=== PATIENT | female | born 1985 ===

== ENCOUNTER 2020-03-24 18:37 | Emergency (ER) | payer SELFPAY ==
[2020-03-24] VITALS (11 sets, daily range): BP systolic 107–126; BP diastolic 70–90
[~2020-03-24] VITALS: Ht 157.4 cm; Wt 57.0 kg
--- NOTE | 2020-03-24 18:57 | ED General ---
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) Exam Limitations: Language Barrier (PT SPEAKS LIMITED YORUBA) History of Present Illness Date Seen by Provider: Mar 24, 2020 Time Seen by Provider: 18:53 Initial Comments PT ARRIVES VIA POV FROM HOME STATES SHE HAS BEEN SICK SINCE Saturday03/20/20 C/O SUBJECTIVE FEVER, HEADACHE AND BODY ACHES SLIGHT SHORTNESS OF BREATH MILD SORE THROAT NO COUGH OR NASAL DRAINAGE OR CONGESTION NO GI SYMPTOMS NO VISION CHANGES C/O URINARY FREQUENCY, BUT NO PAIN ON URINATION HAS OCCASIONALLY TAKEN TYLENOL FOR HER SYMPTOMS PT DENIES ANY KNOWN SICK CONTACTS, BUT PT WORKS AT [employer], WHERE THERE HAVE BEEN A MULTITUDE OF POSITIVE COVID-19 / CORONAVIRUS CASES IN THE LAST WEEK PT HAS CONTINUED TO WORK ALL WEEK, DESPITE BEING SICK, WITH THE LAST DAY SHE WORKED WAS Saturday03/22/20 PT STATES SHE LIVES ALONE--HER CHILDREN AND OTHER FAMILY LIVE IN [facility] PCP: NONE Allergies and Home Medications Allergies Coded Allergies: No Known Drug Allergies (Unverified , 03/24/20) Patient Home Medication List Home Medication List Reviewed: Yes Review of Systems Review of Systems Constitutional: see HPI, fever, malaise EENTM: see HPI, throat pain; No ear pain, No nose congestion Respiratory: see HPI; No cough; short of breath; No wheezing Cardiovascular: no symptoms reported; No chest pain, No edema, No palpitations, No syncope Gastrointestinal: no symptoms reported; No abdominal pain, No nausea, No vomiting Genitourinary: see HPI; No dysuria; frequency : No LMP: February 26, 2020 Musculoskeletal: see HPI, back pain, other (BODY ACHES) Skin: no symptoms reported; No rash Psychiatric/Neurological: See HPI, Headache; Denies Numbness, Denies Paresthesia, Denies Seizure, Denies Tingling, Denies Weakness Hematologic/Lymphatic: No Symptoms Reported Immunological/Allergic: no symptoms reported Past [id number] Hx Past Med/Social Hx: Reviewed and Corrections made Patient Social History Alcohol Use: Rarely Uses Recreational Drug Use: No Smoking Status: Never a Smoker Recent Foreign Travel: No Past Medical History Surgeries: Yes ( X 2; BTL) Section, Tubal Ligation Respiratory: No Cardiac: No Neurological: No : No Reproductive Disorders: No Genitourinary: No Gastrointestinal: No Musculoskeletal: No Endocrine: No HEENT: No Cancer: No Psychosocial: No Integumentary: No Blood Disorders: No Physical Exam Vital Signs Vital Signs - First Documented 03/24/20 18:53 Temp 38.1 Pulse 105 Resp 22 B/P (MAP) 137/91 (106) Pulse Ox 99 Capillary Refill : Height, Weight, BMI Height: '" Weight: lbs. oz. kg; BMI Method: General Appearance: No Apparent Distress, WD/WN Eyes: Bilateral Eye Normal Inspection, Bilateral Eye PERRL, Bilateral Eye EOMI, Bilateral Eye Other (CONJUNCTIVA INFLAMED BILATERALLY) HEENT: PERRL/EOMI, TMs Normal, Normal ENT Inspection, Pharynx Normal, Moist Mucous Membranes Neck: Full Range of Motion, Normal Inspection, Non Tender, Supple; No Carotid Bruit, No JVD, No Lymphadenopathy (L), No Lymphadenopathy (R) Respiratory: Chest Non Tender, Normal Breath Sounds, No Accessory Muscle Use, No Respiratory Distress Cardiovascular: No Edema, No Gallop, No JVD, No Murmur, Normal Peripheral Pulses, Tachycardia (105) Gastrointestinal: Normal Bowel Sounds, No Organomegaly, No Pulsatile Mass, Non Tender, Soft Back: Normal Inspection, No CVA Tenderness, No Vertebral Tenderness Extremity: Normal Capillary Refill, Normal Inspection, Normal Range of Motion, Non Tender, No Calf Tenderness, No Pedal Edema Neurologic/Psychiatric: Alert, Oriented x3, No Motor/Sensory Deficits, Normal Mood/Affect, 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 Norm as Tested Skin: Normal Color, Warm/Dry; No Rash Focused Exam Lactate Level 03/24/20 19:05: Lactic Acid Level 0.89 Lactic Acid Level Laboratory Tests Test 03/24/20 19:05 Lactic Acid Level 0.89 MMOL/L (0.50-2.00) Progress/Results/Core Measures Suspected Sepsis SIRS Temperature: Pulse: Respiratory Rate: Laboratory Tests 03/24/20 19:05: White Blood Count 4.8 Blood Pressure / Mean: 03/24/20 19:05: Lactic Acid Level 0.89 Laboratory Tests 03/24/20 19:05: Creatinine 0.68, Platelet Count 216, Total Bilirubin 0.2 03/24/20 19:30: INR Comment 0.9 Results/Orders Lab Results Laboratory Tests Test 03/24/20 19:05 03/24/20 19:30 Range/Units White Blood Count 4.8 4.3-11.0 10^3/uL Red Blood Count 5.62 4.35-5.85 10^6/uL Hemoglobin 14.9 11.5-16.0 G/DL Hematocrit 44 35-52 % Mean Corpuscular Volume 79 L 80-99 FL Mean Corpuscular Hemoglobin 27 25-34 PG Mean Corpuscular Hemoglobin Concent 34 32-36 G/DL Red Cell Distribution Width 14.7 H 10.0-14.5 % Platelet Count 216 130-400 10^3/uL Mean Platelet Volume 10.0 7.4-10.4 FL Neutrophils (%) (Auto) 65 42-75 % Lymphocytes (%) (Auto) 27 12-44 % Monocytes (%) (Auto) 8 0-12 % Eosinophils (%) (Auto) 0 0-10 % Basophils (%) (Auto) 0 0-10 % Neutrophils # (Auto) 3.1 1.8-7.8 X 10^3 Lymphocytes # (Auto) 1.3 1.0-4.0 X 10^3 Monocytes # (Auto) 0.4 0.0-1.0 X 10^3 Eosinophils # (Auto) 0.0 0.0-0.3 10^3/uL Basophils # (Auto) 0.0 0.0-0.1 10^3/uL Erythrocyte Sedimentation Rate 4 0-20 MM/HR Sodium Level 135 135-145 MMOL/L Potassium Level 3.5 L 3.6-5.0 MMOL/L Chloride Level 106 98-107 MMOL/L Carbon Dioxide Level 15 L 21-32 MMOL/L Anion Gap 14 5-14 MMOL/L Blood Urea Nitrogen 5 L 7-18 MG/DL Creatinine 0.68 0.60-1.30 MG/DL Estimat Glomerular Filtration Rate > 60 BUN/Creatinine Ratio 7 Glucose Level 101 70-105 MG/DL Lactic Acid Level 0.89 0.50-2.00 MMOL/L Calcium Level 9.4 8.5-10.1 MG/DL Corrected Calcium 8.5-10.1 MG/DL Magnesium Level 2.0 1.6-2.4 MG/DL Total Bilirubin 0.2 0.1-1.0 MG/DL Aspartate Amino Transf (AST/SGOT) 40 H 5-34 U/L Alanine Aminotransferase (ALT/SGPT) 50 0-55 U/L Alkaline Phosphatase 67 40-136 U/L Lactate Dehydrogenase 242 H 125-220 U/L C-Reactive Protein High Sensitivity 1.72 H 0.00-0.50 MG/DL Total Protein 8.5 H 6.4-8.2 GM/DL Albumin 4.7 H 3.2-4.5 GM/DL Procalcitonin 0.03 <0.10 NG/ML Serum Test, Qualitative NEGATIVE NEGATIVE Monoscreen NEGATIVE NEGATIVE Prothrombin Time 12.5 12.2-14.7 SEC INR Comment 0.9 0.8-1.4 Activated Partial Thromboplast Time 28 24-35 SEC D-Dimer 0.48 0.00-0.49 UG/ML Urine Color YELLOW Urine Clarity CLEAR Urine pH 6.0 5-9 Urine Specific Amalia <=1.005 1.016-1.022 Urine Protein NEGATIVE NEGATIVE Urine Glucose (UA) NEGATIVE NEGATIVE Urine Ketones NEGATIVE NEGATIVE Urine Nitrite NEGATIVE NEGATIVE Urine Bilirubin NEGATIVE NEGATIVE Urine Urobilinogen 0.2 < = 1.0 MG/DL Urine Leukocyte Esterase NEGATIVE NEGATIVE Urine RBC (Auto) NEGATIVE NEGATIVE Urine RBC NONE /HPF Urine WBC 0-2 /HPF Urine Squamous Epithelial Cells 2-5 /HPF Urine Crystals PRESENT H /LPF Urine Amorphous Sediment FEW LEROY URATES H /LPF Urine Bacteria NEGATIVE /HPF Urine Casts NONE /LPF Urine Mucus NEGATIVE /LPF Urine Culture Indicated NO Group A Streptococcus Screen NEGATIVE NEGATIVE Micro Results Microbiology 03/24/20 Influenza Types A,B Antigen (HOWIE) - Final, Complete My Orders Orders - RICK LEMON DO Lactic Acid Analyzer (03/24/20 18:54) Magnesium (03/24/20 18:54) Monotest (03/24/20 18:54) Procalcitonin (Pct) (03/24/20 18:54) Protime With Inr (03/24/20 18:54) Partial Thromboplastin Time (03/24/20 18:54) Rapid Strep A Screen (03/24/20 18:54) Blood Culture (03/24/20 18:54) Influenza A And B Antigens (03/24/20 18:54) Adenovirus Detection By Pcr (03/24/20 18:54) Acetaminophen Tablet (Tylenol Tablet) (03/24/20 19:30) Hcg,Qualitative Serum (03/24/20 20:39) Azithromycin Tablet (Zithromax Tablet) (03/24/20 21:00) Medications Given in ED Current Medications Medications Dose Ordered Sig/Rasheed Route Start Time Stop Time Status Last Admin Dose Admin Acetaminophen 1,000 mg ONCE ONCE PO 03/24/20 19:30 03/24/20 19:31 DC 03/24/20 19:55 1,000 MG Vital Signs/I&O 03/24/20 03/24/20 03/24/20 03/24/20 18:53 19:00 19:15 19:30 Temp 38.1 Pulse 105 101 108 99 Resp 22 16 18 16 B/P (MAP) 137/91 (106) 126/79 (95) 121/74 (90) 113/78 (90) Pulse Ox 99 95 98 98 03/24/20 03/24/20 03/24/20 03/24/20 19:45 19:55 20:00 20:15 Temp 38.1 Pulse 102 100 91 Resp 14 19 27 B/P (MAP) 125/88 (100) 118/84 (95) 119/70 (86) Pulse Ox 95 100 96 03/24/20 20:34 Temp 37.9 Pulse 98 Resp 20 B/P (MAP) 123/90 (101) Pulse Ox 97 Capillary Refill : Progress Note : Progress Note PT SEEN IN COVID UNIT, COVID TESTING DONE AND PPE WORN AT ALL TIMES Diagnostic Imaging Comments CXR--NO ACUTE PROCESS, PER RADIOLOGIST REPORT AT 2027 Reviewed: Reviewed by Me Departure Impression Primary Impression: COVID P.U.I. Additional Impression: Fever Disposition: 01 HOME, SELF-CARE Condition: Stable Departure-Patient Inst. Referrals: NO,LOCAL PHYSICIAN (PCP/Family) Primary Care Physician Patient Instructions: Coronavirus Disease 2019 (COVID-19) (DC) Add. Discharge Instructions: TYLENOL 1 GRAM 4 TIMES A DAY FOR PAIN OR FEVER LOTS OF CLEAR LIQUIDS QUARANTINE FOR THE NEXT 2 WEEKS, OR UNTIL CLEARED BY HEALTH DEPARTMENT--YOU AND NO ONE ELSE LEAVES OR ENTERS YOUR HOME FOR THE NEXT 2 WEEKS RICK LEMON DO Mar 24, 2020 18:57
[2020-03-24] MEDS ORDERED: ACETAMINOPHEN 500 MG TAB (TYLENOL) PO ONE (19:30)
[2020-03-24 19:55] LABS: BASOPHILS % (AUTO) 0 % (0-10); EOSINOPHILS % (AUTO) 0 % (0-10); HEMATOCRIT 44 % (35-52); HEMOGLOBIN 14.9 G/DL (11.5-16.0); LYMPHOCYTES # (AUTO) 1.3 X 10^3 (1.0-4.0); LYMPHOCYTES % (AUTO) 27 % (12-44); MEAN CORPUSCULAR HEMOGLOBIN 27 PG (25-34); MEAN CORPUSCULAR HGB CONC 34 G/DL (32-36); MEAN CORPUSCULAR VOLUME 79 FL (80-99); MONOCYTES # (AUTO) 0.4 X 10^3 (0.0-1.0); MONOCYTES % (AUTO) 8 % (0-12); NEUTROPHILS # (AUTO) 3.1 X 10^3 (1.8-7.8); NEUTROPHILS % (AUTO) 65 % (42-75); PLATELET COUNT 216 10^3/uL (130-400); RED CELL DISTRIBUTION WIDTH 14.7 % (10.0-14.5); WHITE BLOOD COUNT 4.8 10^3/uL (4.3-11.0)
[2020-03-24 19:58] LABS: BILIRUBIN,URINE NEGATIVE (NEGATIVE); CLARITY,URINE CLEAR; COLOR,URINE YELLOW; GLUCOSE, URINE (UA) NEGATIVE (NEGATIVE); KETONES,URINE NEGATIVE (NEGATIVE); LEUKOCYTE ESTERASE ,URINE NEGATIVE (NEGATIVE); NITRITE,URINE NEGATIVE (NEGATIVE); PROTEIN,URINE NEGATIVE (NEGATIVE)
[2020-03-24 20:18] LABS: ALANINE AMINOTRANSFERASE 50 U/L (0-55); ALBUMIN 4.7 GM/DL (3.2-4.5); ALKALINE PHOSPHATASE 67 U/L (40-136); BILIRUBIN,TOTAL 0.2 MG/DL (0.1-1.0); BUN/CREATININE RATIO 7; CALCIUM 9.4 MG/DL (8.5-10.1); CARBON DIOXIDE 15 MMOL/L (21-32); CHLORIDE 106 MMOL/L (98-107); CREATININE SERUM 0.68 MG/DL (0.60-1.30); GFR ESTIMATED > 60; GLUCOSE 101 MG/DL (70-105); POTASSIUM 3.5 MMOL/L (3.6-5.0); SODIUM 135 MMOL/L (135-145); TOTAL PROTEIN 8.5 GM/DL (6.4-8.2)
--- NOTE | 2020-03-24 20:18 | Diagnostic Imaging Report ---
INDICATION: Short of breath, dyspnea Upright chest shows normal heart size and vascularity. The lungs are clear. There is no effusion or pneumothorax. There is no bony abnormality. IMPRESSION: No acute abnormality is seen. Dictated by: Dictated on workstation # [id number]
[2020-03-24 20:19] LABS: ERYTHROCYTE SEDIMENTATION RATE 4 MM/HR (0-20)
[2020-03-24 20:27] LABS: FIBRIN DEGRADATION PRODUCTS 0.48 UG/ML (0.00-0.49); INR 0.9 (0.8-1.4); PROTHROMBIN TIME PATIENT 12.5 SEC (12.2-14.7)
[2020-03-24 20:38] LABS: BACTERIA,URINE NEGATIVE /HPF; WBC,URINE 0-2 /HPF
[2020-03-24 20:39] LABS: AMORPHOUS SEDIMENT,UR FEW AMOR URATES /LPF
[2020-03-24] MEDS ORDERED: AZITHROMYCIN 250 MG TAB (ZITHROMAX) PO ONE (21:00)
[2020-03-24] MEDS ORDERED: IBUPROFEN TABLET 200 MG TAB PO ONE (21:11)
[2020-03-24] MEDS ORDERED: IBUPROFEN 800 MG (MOTRIN) TAB PO ONE (21:15)
--- OUTSIDE RECORDS SUMMARY | 2020-03-24 22:39 | XMS REPORT | Continuity of Care Document ---
Author Organization Unknown Address Unknown Phone Unavailable Allergies There is no data. Medications There is no data. Problems There is no data. Procedures There is no data. Results Test Result Range Complete blood count (CBC) with automate d white blood cell (WBC) differential - 03/24/20 19:05 Blood leukocytes automated count (number/volume) 4.8 10*3/uL 4.3-11.0 Blood erythrocytes automated count (number/volume) 5.62 10*6/uL 4.35-5.85 Venous blood hemoglobin measurement (mass/volume) 14.9 g/dL 11.5-16.0 Blood hematocrit (volume fraction) 44 % 35-52 Automated erythrocyte mean corpuscular volume 79 [ foz_us] 80-99 Automated erythrocyte mean corpuscular h emoglobin (mass per erythrocyte) 27 pg 25-34 Automated erythrocyte mean corpuscular h emoglobin concentration measurement (mass/volume) 34 g/dL 32-36 Automated erythrocyte distribution width ratio 14. 7 % 10.0- 14.5 Automated blood platelet count (count/volume) 216 10*3/uL 130-400 Automated blood platelet mean volume measurement 10.0 [foz_us] 7.4-10.4 Automated blood neutrophils/100 leukocytes 65 % 42-75 Automated blood lymphocytes/100 leukocytes 27 % 12-44 Blood monocytes/100 leukocytes 8 % 0-12 Automated blood eosinophils/100 leukocytes 0 % 0-10 Automated blood basophils/100 leukocytes 0 % 0-10 Blood neutrophils automated count (number/volume) 3.1 10*3 1.8-7.8 Blood lymphocytes automated count (number/volume) 1.3 10*3 1.0-4.0 Blood monocytes automated count (number/volume) 0. 4 10*3 0.0-1.0 Automated eosinophil count 0.0 10*3/uL 0 .0-0.3 Automated blood basophil count (count/volume) 0.0 10*3/uL 0.0-0.1 Serum heterophile antibody titer - 03/24 19:05 Serum heterophile antibody titer NEGATIVE NEGATIVE Blood lactic acid measurement (moles/vol ume) - 03/24/20 19:05 Blood lactic acid measurement (moles/volume) 0.89 mmol/L 0.50-2.00 Comprehensive metabolic panel - 03/24/20 19:05 Serum or plasma sodium measurement (moles/volume) 135 mmol/L 135-145 Serum or plasma potassium measurement (moles/volume) 3.5 mmol/L 3.6-5.0 Serum or plasma chloride measurement (moles/volume) 106 mmol/L 98-107 Carbon dioxide 15 mmol/L 21-32 Serum or plasma anion gap determination (moles/volume) 14 mmol/L 5-14 Serum or plasma urea nitrogen measurement (mass/volume ) 5 mg/dL 7-18 Serum or plasma creatinine measurement (mass/volume) 0.68 mg/dL 0.60-1.30 Serum or plasma urea nitrogen/creatinine mass ratio 7 NRG Serum or plasma creatinine measurement w ith calculation of estimated glomerular filtration rate > NRG Serum or plasma glucose measurement (mass/volume) 101 mg/dL 70-105 Serum or plasma calcium measurement (mass/volume) 9.4 mg/dL 8.5-10.1 Serum or plasma total bilirubin measurement (mass/volu me) 0.2 mg/dL 0.1-1.0 Serum or plasma alkaline phosphatase gi surement (enzymatic activity/volume) 67 U/L 40-136 Serum or plasma aspartate aminotransfera se measurement (enzymatic activity/volume) 40 U/L 5-34 Serum or plasma alanine aminotransferase measurement (enzymatic activity/volume) 50 U/L 0-55 Serum or plasma protein measurement (mass/volume) 8.5 g/dL 6.4-8.2 Serum or plasma albumin measurement (mass/volume) 4.7 g/dL 3.2-4.5 Magnesium - 03/24/20 19:05 Magnesium 2.0 mg/dL 1.6-2.4 Serum ragweed IgE antibody assay - 03/24 19:05 Serum ragweed IgE antibody assay 242 U/L 125-220 PROCALCITONIN (PCT) - 03/24/20 19:05 PROCALCITONIN (PCT) 0.03 ng/mL <0.10 Erythrocyte sedimentation rate by rob gren method - 03/24/20 19:05 Erythrocyte sedimentation rate by westergren method 4 mm 0- 20 Serum or plasma C reactive protein measu rement (mass/volume) - 03/24/20 19:05 Serum or plasma C reactive protein measurement (mass/v olume) 1.72 mg/dL 0.00-0.50 Serum or plasma choriogonadotropin (preg opal test) detection - 03/24/20 19:05 Serum or plasma choriogonadotropin ( test) de tection NEGATIVE NEGATIVE Streptococcus pyogenes antigen detection - 03/24/20 19:30 Streptococcus pyogenes antigen detection NEGATIVE NEGATIVE Influenza virus A and B antigen detectio n - 03/24/20 19:30 FLU RESULT NEGATIVE FOR INFLUENZA A AND B ANTIGENS BY IA NRG PT panel in platelet poor plasma by coag ulation assay - 03/24/20 19:30 Prothrombin time (PT) in platelet poor plasma by coagu lation assay 12.5 s 12.2-14.7 INR in platelet poor plasma or blood by coagulation as say 0.9 0.8-1.4 Activated partial thromboplastin time (a PTT) in platelet poor plasma bycoagulation assay - 03/24/20 19:30 Activated partial thromboplastin time (a PTT) in platelet poor plasma bycoagulation assay 28 s 24-35 Fibrin D-dimer FEU measurement in platel et poor plasma (mass/volume) - 03/24/20 19:30 Fibrin D-dimer FEU measurement in platelet poor plasma (mass/volume) 0.48 ug/mL 0.00-0.49 Complete urinalysis with reflex to cultu re - 03/24/20 19:30 Urine color determination YELLOW NRG Urine clarity determination CLEAR NR G Urine pH measurement by test strip 6.0 5-9 Specific gravity of urine by test strip <= 1.016-1.022 Urine protein assay by test strip, semi-quantitative NEGATIVE NEGATIVE Urine glucose detection by automated test strip NE GATIVE NEGATIVE Erythrocytes detection in urine sediment by light micr oscopy NEGATIVE NEGATIVE Urine ketones detection by automated test strip NE GATIVE NEGATIVE Urine nitrite detection by test strip NEGATIVE NEGATIVE Urine total bilirubin detection by test strip NEGA TIVE NEGATIVE Urine urobilinogen measurement by automated test strip (mass/volume) 0.2 mg/dL < = 1.0 Urine leukocyte esterase detection by dipstick NEG ATIVE NEGATIVE Automated urine sediment erythrocyte cou nt by microscopy (number/high power field) NONE NRG Automated urine sediment leukocyte count by microscopy (number/high power field) [HPF] NRG Bacteria detection in urine sediment by light microsco py NEGATIVE NRG Squamous epithelial cells detection in u rine sediment by light microscopy 2-5 NRG Crystals detection in urine sediment by light microsco py PRESENT NRG Casts detection in urine sediment by light microscopy NONE NRG Mucus detection in urine sediment by light microscopy NEGATIVE NRG Complete urinalysis with reflex to culture NO NRG Amorphous sediment detection in urine sediment by ligh t microscopy FEW LEROY URATES NRG Encounters ACCT No. Visit Date/Time Discharge Status Pt. Type Provider Facility Loc./Unit Complaint [id number] 03/22/2020 18:20:00 ACT Outpatient [facility] [id number] 03/24/2020 19:56:00 Document Registration
[2020-03-29 09:15] LABS: PARAINFLU 1 PCR Not Detected (Not Detected); PARAINFLU 2 PCR Not Detected (Not Detected)
== END 2020-03-24 21:29 | disposition home or self-care (01) ==
LOC: ER 18:39
DX: U07.1 COVID-19 (principal)
CPT/HCPCS: 36415; 71045; 80053; 81000; 83605; 83615; 83735; 84145; 84703; 85025; 85379; 85610; 85652; 85730; 86141; 86308; 87040; 87430; 87631; 87635; 87798; 87804